=== PATIENT | female | born 1990 | race Caucasian/White ===

== ENCOUNTER 2018-07-06 19:13 | Emergency (ER) | payer OTHER | END 2018-07-06 21:04 | disposition home or self-care (01) | LOC: D.ER 19:13 | DX: S20.211A Contusion of right front wall of thorax, initial encounter (principal); W18.30XA Fall on same level, unspecified, initial encounter; Y93.89 Activity, other specified; Y92.019 Unspecified place in single-family (private) house as the place of occurrence of the external cause; S29.011A Strain of muscle and tendon of front wall of thorax, initial encounter ==